=== PATIENT | female | born 1960 | race Hispanic/Latino ===

== ENCOUNTER → 2019-01-04 | Outpatient (CLI) | payer OTHER ==
[~2019-01-04] MED LIST: IOPAMIDOL 370 MG/ML 200 ML INFUS..BTL INJ ONE; SODIUM CHLORIDE 0.9% 50ML 0 ML ONE; SODIUM CHLORIDE 0.9% 50ML 50 ML ONE
[2019-01-04 17:17] LABS: BLOOD UREA NITROGEN 14 mg/dL (7-26); BUN/CREATININE RATIO 18 (6-25); CREATININE, SERUM 0.76 mg/dL (0.57-1.11); EST GLOMERULAR FILTRATION RATE > 60 ML/MIN (60-)
--- NOTE | 2019-01-04 21:00 | Diagnostic Imaging Report ---
EXAM: CT Chest WITH contrast INDICATION: Nodule COMPARISON: None. TECHNIQUE: The Chest was scanned utilizing a multidetector helical scanner after administration of IV contrast. Coronal and sagittal reformations were obtained. IV CONTRAST: 100 mL Isovue-370 COMPLICATIONS: None RADIATION DOSE: Total DLP: 382 mGy*cm Estimated effective dose: (DLP x 0.015 x size factor) mSv CTDIvol has been reviewed. It is below the limits set by the Radiation Protocol Committee (RPC). Appropriate CT dose reduction techniques were utilized. FINDINGS: Lines and Tubes: None. Lower Neck: The visualized thyroid gland is grossly unremarkable with no suspicious or significant nodule identified. Heart and Great Vessels: The aorta and main pulmonary artery measure 30 and 26 mm. respectively. No pericardial effusion. Moderate calcifications mid LAD. Lymph Nodes: No suspicious adenopathy. Lungs: Mild biapical scarring. No pneumothorax. Dependent groundglass opacities have the appearance of atelectasis. Trachea and central bronchi are unremarkable. There is a 32 x 27 mm lobular mass left lower lobe best seen series 3 image 69. 4 mm groundglass nodule right upper lobe series 3 image 30. Upper abdomen: No acute findings. Bones and Soft Tissues: Breast prostheses. No acute findings in the visualized osseous structures. IMPRESSION: 1. 32 x 27 mm lobular mass left lower lobe. Malignancy diagnosis of exclusion. Tissue diagnosis recommended. Signed by: Dr. Jose Rod MD on 01/04/2019 8:56 PM
== END ==
LOC: CT 15:51
PROVIDERS: ATTEND Internal Medicine Critical Care Medicine
DX: R91.8 Other nonspecific abnormal finding of lung field (principal)
CPT/HCPCS: 36415; 71260; 82565; 84520; Q9967

== ENCOUNTER → 2019-01-18 | Outpatient (CLI) | payer OTHER ==
[~2019-01-18] MED LIST changes: +FENTANYL CITRATE/PF 100MCG/2 ML INJ ONE; +GELATIN SPONGE 12-7MM ONE; -IOPAMIDOL 370 MG/ML 200 ML INFUS..BTL INJ ONE; +MIDAZOLAM HCL 2 MG/2 ML VIAL ONE; +SODIUM CHLORIDE 0.9% 500ML 500 ML ONE; -SODIUM CHLORIDE 0.9% 50ML 0 ML ONE; -SODIUM CHLORIDE 0.9% 50ML 50 ML ONE
[2019-01-18 09:03] LABS: INR 0.87; PROTHROMBIN TIME 12.7 seconds (11.9-14.5)
[2019-01-18 09:04] LABS: PARTIAL THROMBOPLASTIN TIME 30.6 seconds (23.8-35.5)
--- NOTE | 2019-01-18 11:47 | Diagnostic Imaging Report ---
Examination: Single AP view of the chest. COMPARISON: None. INDICATION: Status post lung biopsy DISCUSSION: The lungs are well-inflated. Ill-defined left lower lobe nodule with surrounding opacities compatible with perilesional hemorrhage. No pneumothorax or pleural effusion. Right lung is clear. Cardiomediastinal contour and pulmonary vasculature are within normal limits for portable, AP technique. No acute osseous abnormality. IMPRESSION: Status post left lower lobe pulmonary nodule biopsy without evident pneumothorax. Signed by: Dr. Stefan Farr M.D. on 01/18/2019 11:44 AM
--- NOTE | 2019-01-18 11:54 | Diagnostic Imaging Report ---
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 Farr Pre-operative diagnosis: Left lower lobe pulmonary nodule Post-operative diagnosis: Left lower lobe pulmonary nodule Conscious Sedation: Versed 1 mg and Fentanyl 50 mcg. The patient's heart rate and pulse oximetry were continuously monitored by the interventional radiology nurse. Blood pressure was monitored at 5 minute intervals. Total intraservice time for sedation: 35 minutes Additional Medications: Lidocaine 1% for local anesthesia Fluoroscopy time: 0 Contrast used: None Estimated blood loss: Less than 5 cc Blood products administered: None Specimens: Fine-needle aspiration specimens x2, core biopsy specimens x6 Implants: None Condition at completion: Stable Disposition: Radiology holding area DISCUSSION: Informed consent was obtained and documented in the medical record after discussion of risks and benefits. The patient was placed in the prone position on the CT couch. A marker grid was placed over the left mid back and limited CT scan of the thorax confirmed a suitable percutaneous approach to the left lower lobe pulmonary nodule. Overlying skin was marked then prepped and draped in standard sterile fashion. 1% lidocaine was infiltrated into the skin and subcutaneous tissues for local anesthesia. Then under intermittent CT guidance, a 16-gauge needle guide was advanced to the periphery of the nodule. A total of 2 fine-needle aspiration specimens were then obtained coaxially using 20-gauge needles. Specimens were submitted to on-site cytopathology personnel and intralesional location was confirmed. Subsequently, a total of 6 core biopsy specimens were obtained using an 18-gauge, 2 cm throw core biopsy apparatus with door to door sales representative CT images showing appropriate position of the core biopsy needle within the nodule. Specimens were submitted in formalin. At the conclusion of sampling approximately 5 cc of the patient's blood were injected through the needle guide as it was removed. A sterile occlusive dressing was applied. Post biopsy limited CT showed a small amount of perilesional hemorrhage without evidence of pneumothorax. The patient tolerated the procedure well without immediate complication. FINDINGS: Left lower lobe pulmonary nodule IMPRESSION: Successful CT-guided fine-needle aspiration and core biopsies of a left lower lobe pulmonary nodule. Serial chest radiographs will be obtained to assess for development of delayed pneumothorax. Signed by: Dr. Stefan Farr M.D. on 01/18/2019 11:51 AM
--- NOTE | 2019-01-18 11:54 | Diagnostic Imaging Report ---
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 Farr Pre-operative diagnosis: Left lower lobe pulmonary nodule Post-operative diagnosis: Left lower lobe pulmonary nodule Conscious Sedation: Versed 1 mg and Fentanyl 50 mcg. The patient's heart rate and pulse oximetry were continuously monitored by the interventional radiology nurse. Blood pressure was monitored at 5 minute intervals. Total intraservice time for sedation: 35 minutes Additional Medications: Lidocaine 1% for local anesthesia Fluoroscopy time: 0 Contrast used: None Estimated blood loss: Less than 5 cc Blood products administered: None Specimens: Fine-needle aspiration specimens x2, core biopsy specimens x6 Implants: None Condition at completion: Stable Disposition: Radiology holding area DISCUSSION: Informed consent was obtained and documented in the medical record after discussion of risks and benefits. The patient was placed in the prone position on the CT couch. A marker grid was placed over the left mid back and limited CT scan of the thorax confirmed a suitable percutaneous approach to the left lower lobe pulmonary nodule. Overlying skin was marked then prepped and draped in standard sterile fashion. 1% lidocaine was infiltrated into the skin and subcutaneous tissues for local anesthesia. Then under intermittent CT guidance, a 16-gauge needle guide was advanced to the periphery of the nodule. A total of 2 fine-needle aspiration specimens were then obtained coaxially using 20-gauge needles. Specimens were submitted to on-site cytopathology personnel and intralesional location was confirmed. Subsequently, a total of 6 core biopsy specimens were obtained using an 18-gauge, 2 cm throw core biopsy apparatus with inventory representative CT images showing appropriate position of the core biopsy needle within the nodule. Specimens were submitted in formalin. At the conclusion of sampling approximately 5 cc of the patient's blood were injected through the needle guide as it was removed. A sterile occlusive dressing was applied. Post biopsy limited CT showed a small amount of perilesional hemorrhage without evidence of pneumothorax. The patient tolerated the procedure well without immediate complication. FINDINGS: Left lower lobe pulmonary nodule IMPRESSION: Successful CT-guided fine-needle aspiration and core biopsies of a left lower lobe pulmonary nodule. Serial chest radiographs will be obtained to assess for development of delayed pneumothorax. Signed by: Dr. Stefan Farr M.D. on 01/18/2019 11:51 AM
--- NOTE | 2019-01-18 11:54 | Diagnostic Imaging Report ---
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 Farr Pre-operative diagnosis: Left lower lobe pulmonary nodule Post-operative diagnosis: Left lower lobe pulmonary nodule Conscious Sedation: Versed 1 mg and Fentanyl 50 mcg. The patient's heart rate and pulse oximetry were continuously monitored by the interventional radiology nurse. Blood pressure was monitored at 5 minute intervals. Total intraservice time for sedation: 35 minutes Additional Medications: Lidocaine 1% for local anesthesia Fluoroscopy time: 0 Contrast used: None Estimated blood loss: Less than 5 cc Blood products administered: None Specimens: Fine-needle aspiration specimens x2, core biopsy specimens x6 Implants: None Condition at completion: Stable Disposition: Radiology holding area DISCUSSION: Informed consent was obtained and documented in the medical record after discussion of risks and benefits. The patient was placed in the prone position on the CT couch. A marker grid was placed over the left mid back and limited CT scan of the thorax confirmed a suitable percutaneous approach to the left lower lobe pulmonary nodule. Overlying skin was marked then prepped and draped in standard sterile fashion. 1% lidocaine was infiltrated into the skin and subcutaneous tissues for local anesthesia. Then under intermittent CT guidance, a 16-gauge needle guide was advanced to the periphery of the nodule. A total of 2 fine-needle aspiration specimens were then obtained coaxially using 20-gauge needles. Specimens were submitted to on-site cytopathology personnel and intralesional location was confirmed. Subsequently, a total of 6 core biopsy specimens were obtained using an 18-gauge, 2 cm throw core biopsy apparatus with manufacturer representative CT images showing appropriate position of the core biopsy needle within the nodule. Specimens were submitted in formalin. At the conclusion of sampling approximately 5 cc of the patient's blood were injected through the needle guide as it was removed. A sterile occlusive dressing was applied. Post biopsy limited CT showed a small amount of perilesional hemorrhage without evidence of pneumothorax. The patient tolerated the procedure well without immediate complication. FINDINGS: Left lower lobe pulmonary nodule IMPRESSION: Successful CT-guided fine-needle aspiration and core biopsies of a left lower lobe pulmonary nodule. Serial chest radiographs will be obtained to assess for development of delayed pneumothorax. Signed by: Dr. Stefan Farr M.D. on 01/18/2019 11:51 AM
--- NOTE | 2019-01-18 14:54 | Diagnostic Imaging Report ---
Examination: Single AP view of the chest. COMPARISON: 01/18/2019 INDICATION: Post biopsy, 3 hour delayed film DISCUSSION: See impression IMPRESSION: Left lower lobe nodule with surrounding groundglass opacities compatible with perilesional hemorrhage. No evidence of pneumothorax. Right lung remains clear. Signed by: Dr. Stefan Farr M.D. on 01/18/2019 2:50 PM
== END ==
LOC: CT 06:59
PROVIDERS: ATTEND Internal Medicine Critical Care Medicine
DX: R91.1 Solitary pulmonary nodule (principal); R91.8 Other nonspecific abnormal finding of lung field
CPT/HCPCS: 10009; 32405; 36415; 71045; 85049; 85610; 85730; 88112; 88172; 88173; 88305; J2250; J7040; 99152; 99153

== ENCOUNTER → 2019-02-19 | Outpatient (CLI) | payer OTHER ==
--- NOTE | 2019-02-19 13:33 | Diagnostic Imaging Report ---
EXAMINATION: CHEST 2 VIEWS INDICATION: Shortness of breath. Interval removal of left lower lobe. COMPARISON: Chest radiograph 01/18/2019. FINDINGS: TUBES and LINES: None. LUNGS/PLEURA: Patchy left basilar opacity. Status post left lower lobectomy. There is a small left pleural effusion, which may be loculated along the lateral margin. Low lung volume on the left. The right lung is clear. No evidence of pulmonary edema or pneumothorax. HEART AND MEDIASTINUM: The cardiomediastinal silhouette is unremarkable. Surgical clips project over the left hemithorax. BONES AND SOFT TISSUES: No acute osseous abnormality. UPPER ABDOMEN: No free air under the diaphragm. IMPRESSION: Interval removal of the left lower lobe. Volume loss in the left lung with small left pleural effusion, with possible loculated component laterally. Patchy left basilar opacity, likely atelectasis. Signed by: Dr. Wilberto Shetty MD on 02/19/2019 1:30 PM
== END ==
LOC: RAD 12:25
PROVIDERS: ATTEND Thoracic Surgery (Cardiothoracic Vascular Surgery)
DX: R06.02 Shortness of breath (principal)
CPT/HCPCS: 71046